=== PATIENT | male | born 1955 | race Caucasian/White ===

== ENCOUNTER 2023-04-10 14:45 | Inpatient (IN) | payer MEDICARE, OTHER ==
[~2023-04-10] VITALS: Wt 84.4 kg
[2023-04-10 15:01] VITALS: BP 105/62
[2023-04-10 15:53] LABS: BASO % 0.3 % (0.0-1.0); EOS # 0.1 10*3/uL (0.0-0.4); EOS % 0.9 % (1.0-4.0); HEMATOCRIT 50.5 % (42.0-52.0); LYMPH # 1.6 10*3/uL (1.3-4.4); LYMPH % 17.4 % (27.0-41.0); MEAN CELL VOLUME 99.2 fl (80.0-94.0); MEAN CORPUSCULAR HGB CONC 32.3 g/dl (33.0-37.0); MEAN PLATELET VOLUME 9.9 fl (9.6-12.3); MONO # 0.5 10*3/uL (0.1-1.0); MONO % 5.1 % (3.0-9.0); NEUT # 6.9 10*3/uL (2.3-7.9); NEUT % 76.1 % (47.0-73.0); PLATELET COUNT AUTOMATED 273 10*3/uL (130-400); RED BLOOD COUNT 5.09 10*6/uL (4.50-5.90); RED CELL DISTRI WIDTH 13.6 % (0-14.5); WHITE BLOOD COUNT 9.1 10*3/uL (4.8-10.8)
[2023-04-10 16:01] LABS: BILIRUBIN Negative (Negative); BLOOD Negative (Negative); CLARITY Clear (Clear); COLOR Yellow (Yellow); GLUCOSE Negative (Negative); KETONE Negative (Negative); LEUKO ESTERASE Negative (Negative); NITRITE Negative (Negative); PH 5.5 (4.5-8.0); SPECIFIC GRAVITY 1.015 (1.001-1.030)
[2023-04-10 16:04] LABS: ACT PARTIAL THROMBO TIME 25.9 SECONDS (20.0-32.1)
[2023-04-10 16:08] LABS: URINE AMPHETAMINES Negative (1000ng/ml); URINE BARBITURATES Positive (200ng/ml); URINE BENZODIAZEPINES Negative (200ng/ml); URINE CANNABINOIDS (THC) Negative (50ng/ml); URINE COCAINE Negative (300ng/ml); URINE METHADONE Negative (300ng/ml); URINE OPIATES Negative (300ng/ml); URINE PHENCYCLIDINE Negative (25ng/ml)
[2023-04-10 16:09] LABS: BACTERIA TRACE; RBC 0-2 rbc/hpf (0-2); WBC 0-2 wbc/hpf (0-5)
[2023-04-10 16:18] LABS: POTASSIUM 4.2 mmol/L (3.4-5.1); TOTAL PROTEIN 7.5 gm/dL (6.0-8.0)
[2023-04-10 17:59] VITALS: BP 133/89
[2023-04-10] MEDS ORDERED: ALLOPURINOL300 MG PO (19:47)
[2023-04-10] MEDS ORDERED: CLOPIDOGREL75 MG PO (19:48)
[2023-04-10] MEDS ORDERED: LEVOTHYROXINE175 MCG PO (19:49)
[2023-04-10] MEDS ORDERED: AMLODIPINE BESYL5 MG PO (19:49)
[2023-04-10] MEDS ORDERED: LIPITOR40 MG PO (19:50)
[2023-04-10] MEDS ORDERED: THERA-D100 MCG PO (19:50)
[2023-04-10] MEDS ORDERED: METOPROLOL SUCC50 M1 PO (19:52)
[2023-04-10] MEDS ORDERED: MIRALAX17 GM PO (19:57)
[2023-04-10] MEDS ORDERED: COLACE100 MG PO (19:59)
[2023-04-10 20:00] VITALS: BP 133/89
[2023-04-10] MEDS ORDERED: FAMOTIDINE20 M1 PO (20:00)
[2023-04-10] MEDS ORDERED: LITHIUM CARBON150 MG PO (20:02)
[2023-04-10] MEDS ORDERED: QUETIAPINE FUM300 M1 PO (20:03)
[2023-04-10] MEDS ORDERED: MYSOLINE50 M2 PO (20:04)
[2023-04-11 06:30] LABS: BASO % 0.4 % (0.0-1.0); EOS # 0.1 10*3/uL (0.0-0.4); EOS % 1.2 % (1.0-4.0); HEMATOCRIT 50.1 % (42.0-52.0); LYMPH # 2.5 10*3/uL (1.3-4.4); LYMPH % 30.2 % (27.0-41.0); MEAN CELL VOLUME 99.4 fl (80.0-94.0); MEAN CORPUSCULAR HGB 32.3 pg (27.0-31.0); MEAN CORPUSCULAR HGB CONC 32.5 g/dl (33.0-37.0); MEAN PLATELET VOLUME 9.8 fl (9.6-12.3); MONO # 0.5 10*3/uL (0.1-1.0); MONO % 5.5 % (3.0-9.0); NEUT # 5.1 10*3/uL (2.3-7.9); NEUT % 62.5 % (47.0-73.0); PLATELET COUNT AUTOMATED 288 10*3/uL (130-400); RED BLOOD COUNT 5.04 10*6/uL (4.50-5.90); RED CELL DISTRI WIDTH 13.6 % (0-14.5); WHITE BLOOD COUNT 8.2 10*3/uL (4.8-10.8)
[2023-04-11 06:41] LABS: THYROID STIM HORMONE (HS) 8.032 uIU/ml (0.550-4.780); TOTAL PROTEIN 7.8 gm/dL (6.0-8.0)
[2023-04-11 07:13] VITALS: BP 118/82
[2023-04-11 08:06] LABS: VITAMIN D, 25-HYDROXY 85.4 ng/mL (30-100)
[2023-04-11 20:00] VITALS: BP 129/69
[2023-04-12 07:47] VITALS: BP 127/75
[2023-04-12 20:00] VITALS: BP 152/92
[2023-04-13 07:21] VITALS: BP 149/81
[2023-04-13 20:00] VITALS: BP 140/79
[2023-04-14 07:20] VITALS: BP 141/73
[2023-04-14 20:00] VITALS: BP 151/93
[2023-04-15 07:24] VITALS: BP 130/85
[2023-04-15 20:00] VITALS: BP 119/82
[2023-04-16 07:17] VITALS: BP 128/82
[2023-04-16 20:00] VITALS: BP 129/83
[2023-04-17 08:03] VITALS: BP 118/82
[2023-04-17 20:00] VITALS: BP 132/72
[2023-04-18 07:56] VITALS: BP 126/72
[2023-04-18 20:00] VITALS: BP 124/70
[2023-04-19 07:44] VITALS: BP 122/94
[2023-04-19 20:00] VITALS: BP 118/68
[2023-04-20 07:38] VITALS: BP 131/78
[2023-04-20 20:00] VITALS: BP 151/88
[2023-04-21 06:48] LABS: BASO % 0.6 % (0.0-1.0); EOS # 0.1 10*3/uL (0.0-0.4); EOS % 1.3 % (1.0-4.0); HEMATOCRIT 46.5 % (42.0-52.0); LYMPH # 2.3 10*3/uL (1.3-4.4); LYMPH % 34.4 % (27.0-41.0); MEAN CELL VOLUME 98.9 fl (80.0-94.0); MEAN CORPUSCULAR HGB 31.9 pg (27.0-31.0); MEAN CORPUSCULAR HGB CONC 32.3 g/dl (33.0-37.0); MEAN PLATELET VOLUME 9.7 fl (9.6-12.3); MONO # 0.4 10*3/uL (0.1-1.0); MONO % 5.4 % (3.0-9.0); NEUT # 3.9 10*3/uL (2.3-7.9); NEUT % 58.2 % (47.0-73.0); PLATELET COUNT AUTOMATED 238 10*3/uL (130-400); RED CELL DISTRI WIDTH 13.8 % (0-14.5); WHITE BLOOD COUNT 6.7 10*3/uL (4.8-10.8)
[2023-04-21 07:25] LABS: POTASSIUM 4.6 mmol/L (3.4-5.1)
[2023-04-21 07:38] VITALS: BP 129/79
[2023-04-22 07:26] VITALS: BP 107/72
[2023-04-22 20:00] VITALS: BP 129/82
[2023-04-23 08:20] VITALS: BP 141/99
[2023-04-23 20:00] VITALS: BP 132/66
[2023-04-24 07:30] VITALS: BP 128/82
[2023-04-24 20:00] VITALS: BP 130/85
[2023-04-25] MEDS ORDERED: MIRTAZAPINE15 M2 PO (07:02)
[2023-04-25] MEDS ORDERED: MEMANTINE HCL10 MG PO (07:02)
[2023-04-25] MEDS ORDERED: RIVASTIGMINE TAR3 M1 PO (07:02)
[2023-04-25] MEDS ORDERED: LATU40TA PO (07:02)
[2023-04-25 07:26] VITALS: BP 121/94
== END 2023-04-25 15:12 | DRG 885 ==
LOC: ED 14:45 → 3N 18:35
PROVIDERS: Emergency Medicine; Registered Nurse; ADMIT Psychiatry & Neurology Psychiatry; ATTEND Psychiatry & Neurology Psychiatry
PROC: 0HBRXZZ Excision of Toe Nail, External Approach (ICD-10-PCS; principal; 2023-04-24)
PROC: 0HBRXZZ Excision of Toe Nail, External Approach (ICD-10-PCS; 2023-04-24)
PROC: 0HBRXZZ Excision of Toe Nail, External Approach (ICD-10-PCS; 2023-04-24)
PROC: 0HBRXZZ Excision of Toe Nail, External Approach (ICD-10-PCS; 2023-04-24)
PROC: 0HBRXZZ Excision of Toe Nail, External Approach (ICD-10-PCS; 2023-04-24)
PROC: 0HBRXZZ Excision of Toe Nail, External Approach (ICD-10-PCS; 2023-04-24)
PROC: 0HBRXZZ Excision of Toe Nail, External Approach (ICD-10-PCS; 2023-04-24)
PROC: 0HBRXZZ Excision of Toe Nail, External Approach (ICD-10-PCS; 2023-04-24)
PROC: 0HBRXZZ Excision of Toe Nail, External Approach (ICD-10-PCS; 2023-04-24)
PROC: 0HBRXZZ Excision of Toe Nail, External Approach (ICD-10-PCS; 2023-04-24)
DX: F23 Brief psychotic disorder (principal); F01.B18 Vascular dementia, moderate, with other behavioral disturbance; N17.0 Acute kidney failure with tubular necrosis; E11.65 Type 2 diabetes mellitus with hyperglycemia; E87.8 Other disorders of electrolyte and fluid balance, not elsewhere classified; F31.9 Bipolar disorder, unspecified; I10 Essential (primary) hypertension; E78.5 Hyperlipidemia, unspecified; G40.909 Epilepsy, unspecified, not intractable, without status epilepticus; K21.9 Gastro-esophageal reflux disease without esophagitis; L60.2 Onychogryphosis; E89.0 Postprocedural hypothyroidism; B35.1 Tinea unguium; L85.9 Epidermal thickening, unspecified; I87.8 Other specified disorders of veins; E11.42 Type 2 diabetes mellitus with diabetic polyneuropathy; M1A.9XX0 Chronic gout, unspecified, without tophus (tophi); Z79.51 Long term (current) use of inhaled steroids; Z79.899 Other long term (current) drug therapy